=== PATIENT | female | born 1975 | race Caucasian/White ===

== ENCOUNTER 2017-07-30 16:50 | Emergency (ER) | payer BC ==
--- NOTE | 2017-07-30 17:16 | EDM.PDOC ---
ED HPI GENERAL MEDICAL PROBLEM - General Chief Complaint: Genitourinary Problem Stated Complaint: BLADDER INFECTION Time Seen by Provider: 07/30/17 17:09 - History of Present Illness INITIAL COMMENTS - FREE TEXT/NARRATIVE: HISTORY AND PHYSICAL: History of present illness: The patient is a 42-year-old female who presents with complaints of UTI symptoms which include frequency urgency urination of small volumes but no hematuria and no flank pain. She's had no fevers nausea vomiting or diarrhea. She has discomfort in the suprapubic area but is not excruciating and is more and she needs to go to the bathroom and afterwards. She states allergy to Cipro. Patient has been eating and drinking normally and has been trying to drink cranberry juice. The symptoms started yesterday. Patient states she had a bilateral tubal ligation and her had a vasectomy so there is no chance for Review of systems: As per history of present illness and below otherwise all systems reviewed and negative. Past medical history: As per history of present illness and as reviewed below otherwise noncontributory. Surgical history: As per history of present illness and as reviewed below otherwise noncontributory. Social history: No reported history of drug or alcohol abuse. Family history: As per history of present illness and as reviewed below otherwise noncontributory. Physical exam: Gen.: Well-developed mildly overweight female who is nontoxic and moves easily in the ED. Vital signs of been reviewed by me. HEENT: Atraumatic, normocephalic, negative for conjunctival pallor or scleral icterus, mucous membranes moist, throat clear, neck supple, nontender, trachea midline. Lungs: Clear to auscultation, breath sounds equal bilaterally, chest nontender. Heart: S1S2, regular rate and rhythm no overt murmurs Abdomen: Soft, nondistended, nontender. NABS Negative for costovertebral tenderness. Pelvis: Stable nontender. Genitourinary: Deferred. Rectal: Deferred. Extremities: Atraumatic, negative for cords or calf pain. Neurovascular unremarkable. Neuro: Awake, alert, oriented. Cranial nerves II through XII unremarkable. Cerebellum unremarkable. Motor and sensory unremarkable throughout. Exam nonfocal. Diagnostics: UA urine culture Therapeutics: Impression: UTI/cystitis Definitive disposition and diagnosis as appropriate pending reevaluation and review of above. burning pain Pain Score (Numeric/FACES): 7 - Related Data Allergies Allergy/AdvReac Type Severity Reaction Status Date / Time adhesive Allergy Burning Verified 07/30/17 17:04 ciprofloxacin [From Cipro] Allergy Swelling Verified 07/30/17 17:04 morphine Allergy Headache Verified 07/30/17 17:04 Home Meds: Home Meds Omeprazole Magnesium [Prilosec Otc] 20 mg PO ACBRK 01/14/14 [History] Ibuprofen 1 tab PO ASDIRECTED PRN 01/29/15 [History] L.acidoph,Paracasei, B.lactis [Probiotic] 1 tab PO DAILY 01/29/15 [History] Multivitamin [Multivitamins] 1 tab PO DAILY 01/29/15 [History] Past Medical History HEENT History: Reports: None Cardiovascular History: Reports: Other (See Below) Other Cardiovascular History: develop heart failure post Respiratory History: Reports: None Gastrointestinal History: Reports: None Genitourinary History: Reports: UTI, Recurrent 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: Musculoskeletal History: Reports: None Neurological History: Reports: None Psychiatric History: Reports: None Endocrine/Metabolic History: Reports: None Hematologic History: Reports: None Immunologic History: Reports: None Oncologic (Cancer) History: Reports: None Dermatologic History: Reports: None - Infectious Disease History Infectious Disease History: Reports: None - Past Surgical History Head Surgeries/Procedures: Reports: None GI Surgical History: Reports: Cholecystectomy Female Surgical History: Reports: Tubal Ligation Musculoskeletal Surgical History: Reports: Other (See Below) Other Musculoskeletal Surgeries/Procedures:: carpal tunnel Social & Family History - Family History Family Medical History: Noncontributory - Tobacco Use Smoking Status *Q: Current Every Day Smoker Second Hand Smoke Exposure: Yes - Alcohol Use Days Per Week of Alcohol Use: 1 - Recreational Drug Use Recreational Drug Use: No Drug Use in Last 12 Months: No ED ROS GENERAL - Review of Systems Review Of Systems: ROS reveals no pertinent complaints other than HPI. ED EXAM, GENERAL - Physical Exam Exam: See Below (See dictation) Course - Vital Signs Last Recorded V/S: Last Vital Signs Temp 36.4 C 07/30/17 17:04 Pulse 81 07/30/17 17:04 Resp 18 07/30/17 17:04 BP 128/82 07/30/17 17:04 Pulse Ox 98 07/30/17 17:04 - Orders/Labs/Meds Orders: Active Orders 24 hr Category Date Time Status CULTURE URINE [RM] Stat Lab 07/30/17 17:00 Received Labs: Laboratory Tests 07/30/17 Range/Units 17:00 Urine Color YELLOW Urine Appearance SLT CLOUDY Urine pH 6.0 (5.0-8.0) Ur Specific [employer] >= 1.030 (1.001-1.035) Urine Protein 30 (NEGATIVE) mg/dL Urine Glucose (UA) NEGATIVE (NEGATIVE) mg/dL Urine Ketones NEGATIVE (NEGATIVE) mg/dL Urine Occult Blood MODERATE (NEGATIVE) Urine Nitrite NEGATIVE (NEGATIVE) Urine Bilirubin NEGATIVE (NEGATIVE) Urine Urobilinogen 0.2 (<2.0) EU/dL Ur Leukocyte Esterase TRACE (NEGATIVE) Urine RBC 5-10 (0-2/HPF) Urine WBC 15-20 (0-5/HPF) Ur Epithelial Cells FEW (NONE-FEW) Urine Bacteria FEW (NEGATIVE) Urine Mucus MODERATE (NONE-MOD) Departure - Departure Time of Disposition: 17:29 Disposition: Home, Self-Care 01 Condition: Good Clinical Impression: UTI, Urinary tract infectious disease - Discharge Information Referrals: PCP,None [Primary Care Provider] - Forms: ED Department Discharge Additional Instructions: The following information is given to patients seen in the emergency department who are being discharged to home. This information is to outline your options for follow-up care. We provide all patients seen in our emergency department with a follow-up referral. The need for follow-up, as well as the timing and circumstances, are variable depending upon the specifics of your emergency department visit. If you don't have a primary care physician on staff, we will provide you with a referral. We always advise you to contact your personal physician following an emergency department visit to inform them of the circumstance of the visit and for follow-up with them and/or the need for any referrals to a consulting specialist. The emergency department will also refer you to a specialist when appropriate. This referral assures that you have the opportunity for followup care with a specialist. All of these measure are taken in an effort to provide you with optimal care, which includes your followup. Under all circumstances we always encourage you to contact your private physician who remains a resource for coordinating your care. When calling for followup care, please make the office aware that this follow-up is from your recent emergency room visit. If for any reason you are refused follow-up, please contact the [facility] emergency department at and ask to speak to the emergency department charge nurse. [facility] [address] [facility] [address] [facility] [address] [place] [address] [facility] Primary care- Internal Medicine and Family [facility] [address] [place] [id number] Push hydration and take all medications as prescribed. Please call and follow- up with your provider at [facility] or one of our providers in the clinic in the next few days for further care and reevaluation. Return to the ER as needed and as discussed. Use [id number] Tylenol or ibuprofen for any discomfort or fevers. - My Orders Last 24 Hours: My Active Orders 07/30/17 17:00 CULTURE URINE [RM] Stat - Assessment/Plan Last 24 Hours: My Active Orders 07/30/17 17:00 CULTURE URINE [RM] Stat
[2017-07-30 17:42] VITALS: BP 118/75
== END 2017-07-30 17:35 | disposition home or self-care (01) ==
LOC: MW.ED 16:50
DX: N39.0 Urinary tract infection, site not specified (principal); F17.210 Nicotine dependence, cigarettes, uncomplicated; Z88.5 Allergy status to narcotic agent; Z88.1 Allergy status to other antibiotic agents; Z79.899 Other long term (current) drug therapy
CPT/HCPCS: 81001; 87086; 87088; 87186; 99283

== ENCOUNTER 2021-06-06 15:29 | Emergency (ER) | payer BC, OTHER ==
--- NOTE | 2021-06-06 17:18 | EDM.PDOC ---
ED HPI GENERAL MEDICAL PROBLEM - General Chief Complaint: Genitourinary Problem Stated Complaint: POSS BLADDER INFECTION/UTI Time Seen by Provider: 06/06/21 16:32 Source of Information: Reports: Patient History Limitations: Reports: No Limitations - History of Present Illness INITIAL COMMENTS - FREE TEXT/NARRATIVE: HISTORY AND PHYSICAL: History of present illness: The patient is a 46-year-old female who presents to the emergency room with complaints of frequency, hematuria, dysuria which started this a.m. The patient states that she does get urinary tract infections and they do present like this. Her last urinary infection was 2 to 3 years ago. Patient denies any fever, chills, headache, change in vision, syncope or near syncope. Denies any chest pain, back pain, shortness of breath or cough. Denies any abdominal pain, nausea, vomiting, diarrhea, or constipation. Patient has been eating and drinking appropriately. Review of systems: As per history of present illness and below otherwise all systems reviewed and negative. Past medical history: As per history of present illness and as reviewed below otherwise noncontributory. Surgical history: As per history of present illness and as reviewed below otherwise noncontributory. Social history: See social history for further information Family history: As per history of present illness and as reviewed below otherwise noncontributory. Physical exam: General: Well developed and well nourished. Alert and orientated x 3. Nontoxic in appearance and in no acute distress. Vital signs are stable and have been reviewed by me. Nursing notes were reviewed. HEENT: Atraumatic, normocephalic, pupils equal and reactive bilaterally, negative for conjunctival pallor or scleral icterus, mucous membranes moist, TMs normal bilaterally, throat clear, neck supple, nontender, trachea midline. No drooling or trismus noted. No meningeal signs. No hot potato voice noted. Lungs: Clear to auscultation bilaterally. No wheezes, rales, or rhonchi. Chest nontender. Normal work of breathing, no accessory muscles used. Heart: S1S2, regular rate and rhythm without overt murmur, gallops, or rubs. No JVD. No peripheral edema Abdomen: Soft, nondistended, generalized tenderness. Normoactive bowel sounds. Negative for masses or costovertebral tenderness. Skin: Intact, warm, dry. No lesions or rashes noted. Hematologic: No petechiae or purpra. Mucosa appropriate color and normal nail bed color and refill. Extremities: Atraumatic, moves all extremities per self without difficulty or deficits, negative for cords or calf pain. Neurovascular unremarkable. Neuro: Awake, alert, oriented. Cranial nerves II through XII unremarkable. Cerebellum unremarkable. Motor and sensory unremarkable throughout. Exam nonfocal. Psychiatric: Mood and affect are appropriate. Normal thought process. Answering questions appropriately. Notes: *This patient was seen and evaluated during the 2019 SARS-CoV-2 novel coronavirus pandemic period. Community viral transmission is ongoing at time of this encounter and the emergency department is operating under pandemic response procedures. Dated above the patient is a 46-year-old female who presents with frequency, hematuria, dysuria which started this a.m. I have ordered a urinalysis. The urinalysis is indicated of a urinary tract infection. Patient is allergic to Cipro and Bactrim. I have ordered nitrofurantoin 100 mg twice daily for 5 days. The patient is agreeable with this plan. I have talked with the patient about today's findings, in addition to providing specific details for plan of care. Reassessment at the time of disposition demonstrates that the patient is in no acute distress. The patient is stable for discharge, counseling was provided and we discussed in great detail signs and symptoms that would prompt them to return to the Emergency Department. Medication, follow up and supportive care measures were reviewed and discussed. Voices understanding and is agreeable to plan of care. Denies any further questions or concerns at this time. Diagnostics: Urinalysis Prescription: nitrofurantoin 100 mg twice a day for 5 days Impression: Urinary tract infection Plan: 1. You were evaluated today on an emergent basis. Your complaints of hematuria, frequency and painful urination were evaluated with a urinalysis and was found to be a urinary tract infection. I have prescribed nitrofurantoin 100 mg twice a day for 5 days. This went to your pharmacy. You do not need to push fluids but you need to drink adequate amount of fluids. 2. You can alternate Tylenol and ibuprofen as needed for pain and fever management. 3. We encourage you to follow up with your primary care provider and/or recommended specialist in the next few days for re-evaluation and further care/management. 4. If your symptoms should worsen, new symptoms develop or any of the signs and symptoms we discussed should arise please return to the emergency room or call 911 (if needed). Definitive disposition and diagnosis as appropriate pending reevaluation and review of above. bladder Pain Score (Numeric/FACES): 6 - Related Data Allergies Allergy/AdvReac Type Severity Reaction Status Date / Time adhesive Allergy Burning Verified 06/06/21 16:29 ciprofloxacin [From Cipro] Allergy Swelling Verified 06/06/21 16:29 morphine Allergy Headache Verified 06/06/21 16:29 sulfamethoxazole Allergy Rash Verified 06/06/21 16:29 [From Bactrim] trimethoprim [From Bactrim] Allergy Rash Verified 06/06/21 16:29 Home Meds: Home Meds Omeprazole Magnesium [Prilosec Otc] 20 mg PO ACBRK 01/14/14 [History] Ibuprofen 1 tab PO ASDIRECTED PRN 01/29/15 [History] L.acidoph,Paracasei, B.lactis [Probiotic] 1 tab PO DAILY 01/29/15 [History] Multivitamin [Multivitamins] 1 tab PO DAILY 01/29/15 [History] Cholecalciferol (Vitamin D3) [Vitamin D] 2,500 units PO DAILY 06/06/21 [History] Doxycycline [Vibramycin] 100 mg PO DAILY 06/06/21 [History] Magnesium 400 mg PO DAILY 06/06/21 [History] Topiramate 50 mg PO DAILY 06/06/21 [History] metFORMIN [Glucophage XR] 1,000 mg PO BID 06/06/21 [History] nitrofurantoin macrocrystaL [Nitrofurantoin] 100 mg PO BID 5 Days #10 capsule 06/06/21 [Rx] nitrofurantoin macrocrystaL [Nitrofurantoin] 100 mg PO BID 5 Days #10 capsule 06/06/21 [Rx] Past Medical History HEENT History: Reports: None Cardiovascular History: Reports: Other (See Below) Other Cardiovascular History: develop heart failure post Respiratory History: Reports: None Gastrointestinal History: Reports: None Genitourinary History: Reports: UTI, Recurrent [employer]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: Musculoskeletal History: Reports: None Neurological History: Reports: None Psychiatric History: Reports: None Endocrine/Metabolic History: Reports: None Hematologic History: Reports: None Immunologic History: Reports: None Oncologic (Cancer) History: Reports: None Dermatologic History: Reports: None - Infectious Disease History Infectious Disease History: Reports: Chicken Pox - Past Surgical History Head Surgeries/Procedures: Reports: None GI Surgical History: Reports: Cholecystectomy Female Surgical History: Reports: Tubal Ligation Musculoskeletal Surgical History: Reports: Other (See Below) Other Musculoskeletal Surgeries/Procedures:: carpal tunnel Dermatological Surgical History: Reports: Other (See Below) Social & Family History - Family History Family Medical History: No Pertinent Family History - Tobacco Use Tobacco Use Status *Q: Current Every Day Tobacco User Years of Tobacco use: 1 Packs/Tins Daily: 0.5 - Caffeine Use Caffeine Use: Reports: Coffee - Recreational Drug Use Recreational Drug Use: No ED ROS GENERAL - Review of Systems Review Of Systems: Comprehensive ROS is negative, except as noted in HPI. ED EXAM, RENAL/ - Physical Exam Exam: See Below (Dictation) Course - Vital Signs Last Recorded V/S: Last Vital Signs Temp 97.8 F 06/06/21 16:32 Pulse 93 06/06/21 17:27 Resp 17 06/06/21 17:27 BP 120/81 06/06/21 17:27 Pulse Ox 100 06/06/21 17:27 - Orders/Labs/Meds Orders: Active Orders 24 hr Category Date Time Status CULTURE URINE [MREF] Stat Lab 06/06/21 16:28 Received Labs: Laboratory Tests 06/06/21 Range/Units 16:28 Urine Color DARK YELLOW Urine Appearance CLOUDY Urine pH 5.0 (5.0-8.0) Ur Specific [employer] >= 1.030 (1.001-1.035) Urine Protein 100 H (NEGATIVE) mg/dL Urine Glucose (UA) NEGATIVE (NEGATIVE) mg/dL Urine Ketones 15 H (NEGATIVE) mg/dL Urine Occult Blood LARGE H (NEGATIVE) Urine Nitrite POSITIVE H (NEGATIVE) Urine Bilirubin SMALL H (NEGATIVE) Urine Ictotest NEGATIVE Urine Urobilinogen 1.0 (<2.0) EU/dL Ur Leukocyte Esterase MODERATE H (NEGATIVE) Urine RBC >100 H (0-2/HPF) Urine WBC 36-39 (0-5/HPF) Ur Epithelial Cells MODERATE (NONE-FEW) Urine Bacteria 3+ H (NEGATIVE) Urine Mucus LIGHT (NONE-MOD) Departure - Departure Time of Disposition: 17:17 Disposition: Home, Self-Care 01 Condition: Good Clinical Impression: UTI, Urinary tract infectious disease - Discharge Information *PRESCRIPTION DRUG MONITORING PROGRAM REVIEWED*: Not Applicable *COPY OF PRESCRIPTION DRUG MONITORING REPORT IN PATIENT RENEE: Not Applicable Prescriptions: nitrofurantoin macrocrystaL [Nitrofurantoin] 100 mg PO BID 5 Days #10 capsule nitrofurantoin macrocrystaL [Nitrofurantoin] 100 mg PO BID 5 Days #10 capsule Instructions: Urinary Tract Infection, Adult Referrals: Madhu Stokes MD [Primary Care Provider] - Forms: ED Department Discharge Additional Instructions: The following information is given to patients seen in the emergency department who are being discharged to home. This information is to outline your options for follow-up care. We provide all patients seen in our emergency department with a follow-up referral. The need for follow-up, as well as the timing and circumstances, are variable depending upon the specifics of your emergency department visit. If you don't have a primary care physician on staff, we will provide you with a referral. We always advise you to contact your personal physician following an emergency department visit to inform them of the circumstance of the visit and for follow-up with them and/or the need for any referrals to a consulting specialist. The emergency department will also refer you to a specialist when appropriate. This referral assures that you have the opportunity for follow-up care with a specialist. All of these measure are taken in an effort to provide you with optimal care, which includes your follow-up. Under all circumstances we always encourage you to contact your private physician who remains a resource for coordinating your care. When calling for follow-up care, please make the office aware that this follow-up is from your recent emergency room visit. If for any reason you are refused follow-up, please contact the [facility] Emergency Department at and asked to speak to the emergency department charge nurse. [facility] - Primary Care [address] [place] [id number] [facility] [address] [place] [id number] Plan: 1. You were evaluated today on an emergent basis. Your complaints of hematuria, frequency and painful urination were evaluated with a urinalysis and was found to be a urinary tract infection. I have prescribed nitrofurantoin 100 mg twice a day for 5 days. This went to your pharmacy. You do not need to push fluids but you need to drink adequate amount of fluids. 2. You can alternate Tylenol and ibuprofen as needed for pain and fever management. 3. We encourage you to follow up with your primary care provider and/or recommended specialist in the next few days for re-evaluation and further care/management. 4. If your symptoms should worsen, new symptoms develop or any of the signs and symptoms we discussed should arise please return to the emergency room or call 911 (if needed). Sepsis Event Note (ED) - Evaluation Sepsis Screening Result: Possible Sepsis Risk - Focused Exam Vital Signs: Vital Signs Temp Pulse Resp BP Pulse Ox 06/06/21 17:27 93 17 120/81 100 06/06/21 16:32 97.8 F 102 H 18 121/88 98 - My Orders Last 24 Hours: My Active Orders 06/06/21 16:28 CULTURE URINE [MREF] Stat - Assessment/Plan Last 24 Hours: My Active Orders 06/06/21 16:28 CULTURE URINE [MREF] Stat
[2021-06-06 17:30] VITALS: BP 120/81; PULSE 93
== END 2021-06-06 17:28 | disposition home or self-care (01) ==
LOC: MW.ED 15:29
DX: N39.0 Urinary tract infection, site not specified (principal); Z72.0 Tobacco use; Z91.048 Other nonmedicinal substance allergy status; Z88.1 Allergy status to other antibiotic agents; Z88.5 Allergy status to narcotic agent; Z88.2 Allergy status to sulfonamides; Z79.899 Other long term (current) drug therapy
CPT/HCPCS: 81001; 87086; 99283